=== PATIENT | male | born 1950 | race Caucasian/White ===

== ENCOUNTER 2020-11-22 13:31 | Outpatient (CLI) | payer OTHER, MEDICARE, SELFPAY ==
--- NOTE | 2020-11-22 16:30 | ONC CON_ITS ---
Dr. Agustin New Patient Note Patient: Casper Vogt Unit #: [id number]: 1950 Dicatated By: Zurdo Agustin M.D.Date of Visit: Nov 22, 2020 Onc MED New Patient/Consult Referring Physician: Evelyn Kennedy History of Present Illness: Mr. Casper Vogt, is a 70-year-old gentleman with a history of hepatocellular carcinoma diagnosed in October 2017, as per patient at that time he underwent MRI scan of his lower extremities and pelvis for peripheral vascular disease involving lower extremities and there was incidental finding showing a liver mass size about 6.8 x 5.8 cm in segment 6/7 of the liver which was biopsied and confirmed hepatocellular carcinoma subsequently patient underwent Therasphere on April 08, 2018, a new 4.2 cm lesion was seen in segment 7 of the liver on MRI scan done in June 2018 at that time he underwent traditional TACE on June 30, 2018 and then again follow-up scan shows recurrence underwent ablative therapy on November 27, 2018 then again follow-up scan shows recurrence of disease patient underwent therasphere on January 11, 2020 and follow-up scan done in March 2020 showed recurrence of disease for which he underwent CYNDY, and follow-up scan in April showed new enhancing lesions for which he underwent therashere on May 01, 2020 and follow-up MRI scan of abdomen done in July 2020 showed multiple lesions showed arterially enhancing lesion in segment 8 and also a new lesion in segment 2, there is also heterogeneous enhancement in the bilateral lower rib concern for bone spread,, CT scan of chest done did not show any evidence of mets but his bone scan was pending patient was recommended Avastin/Tecentriq based systemic therapy every 3 weeks which he started on October 10, 2020 and received second dose on October 31, 2020, tolerated well but because of transportation was a issue from his home in [place] to [place] so patient decided to switch his care to [place] as he had some reservation with local oncologist in [place] As his oncologist was holding off treatment for recurrence of disease while waiting for AFP, physician in [place] wanted to start his treatment as soon as possible and informed patient that some patient with hepatocellular carcinoma secrete AFP Not everyone Patient has history of diabetes, hypertension, history of glaucoma involving left eye, COPD, still smoke about pack a day Patient denies any abdominal pain, denies any jaundice, denies any skin rash but dry skin, denies any shortness of breath or wheezing, denies any diarrhea or mucus in the stool, denies any abdominal fullness, denies any jaundice. Tolerating 3 weekly Avastin/Tecentriq well and now due for next cycle and patient wants to resume treatment here in [place] instead of going to [place]. Past Medical History: Mr. Vogt's medical history consists of depression, glaucoma, history of Melanoma, hypercholesterolemia, hyperlipidemia, hypertension, osteoarthritis, peripheral vascular disease, and type II diabetes. Past Surgical History: There is no documented surgical history. Medications: Albuterol Sulfate 2 Puff(s) (of 108 (90 base) mcg/act) Aerosol Powder, Breath Activated Inhalation ac (tid) & at bedtime, Antacid Calcium 1 Each (of 500 mg) Tablet, chewable Oral PRN, Brimonidine-Dorzolamide Solution Ophthalmic, Cilostazol 1 Tablet (of 100 mg) Oral b.i.d., clonazePAM 1 Tablet (of 1 mg) Oral at bedtime, Cozaar 1 Each (of 50 mg) Tablet Oral daily, Gabapentin 1 Capsule (of 300 mg) Oral at bedtime, Glucophage 1 Tablet (of 1000 mg) Oral b.i.d., Latanoprost Emulsion Ophthalmic, Levemir FlexTouch (100 Units/mL) Subcutaneous Take as Directed, PreserVision AREDS 1 Each Capsule Oral daily, Terazosin HCl 1 Capsule (of 5 mg) Oral at bedtime, Timolol Maleate 1 Each (of 0.5 ) Solution Ophthalmic daily, Urea 10 Hydrating 1 Each Cream Topical PRN Allergies: No Known Allergies. Social History: Mr. Vogt is . He is a daily smoker who has smoked 1.0 pack/day for 50 years. He has no history of drinking. 3/4 TO 1 PPD SMOKER. Family History: There is no documented family history. Review Of Symptoms: Review of Systems is not available for this patient. Vital Signs: Performed on Nov 22, 2020 15:23: 0, 18.83, 1.63 sq.m, 67 in, 96 %, 103 /min (HIGH), 16 /min, 167/79 mm(hg) (HIGH), 98.4 F, and 120.2 lbs (HIGH). Performance Status: 1 - No physically strenuous activity, but ambulatory and able to carry out light or sedentary work (e.g. office work, light house work). (ECOG) Physical Examination: ENMT - No visible edema no rash no thrush no jaundice, Respiratory - Poor air entry, mild wheezing, Cardiovascular - Regular rate and rhythm of heart, Abdomen - Soft, bowel sounds present well-healed right upper quadrant surgical scar, Extremities - No visible edema. Lab/Imaging: Most recent lab results are not available for this patient. Impression: Recurrent hepatocellular carcinoma, diagnosed in October 2017 status post therasphere on April 08, 2018, status post traditional TACE on June 30, 2018 for recurrent disease, status post ablative therapy on November 27, 2018 for recurrence, status post thersphere on January 11, 2020, status post CYNDY in March 2020, status post therasphere on May 01, 2020, follow-up MRI scan of the liver done in July 2020 showed multiple lesions which showed arterially enhancing lesion in segment 8 and also new lesion in segment 2 and heterogeneous enhancement in bilateral lower ribs, concerning for bone mets, CT scan of chest was done which showed no evidence of metastatic disease but his bone scan was pending. Patient was started on Tecentriq/Avastin every 3 weeks on October 10, 2020 and patient received second dose on October 31, 2020, tolerated well and then switched his care to [place] from [place] Hypertension Diabetes, on insulin Glaucoma involving left eye with 50% vision History of peripheral vascular disease involving lower extremities Chronic smoking still active Plan: Discussed with patient regarding his disease status and treatment options, patient was getting all his treatment for hepatocellular carcinoma in [place] and recently because of recurrence of disease seen on repeat MRI scan of the liver done in July 2020, patient was recommended Tecentriq/Avastin, which he started on October 10, 2020 in [place] and then received second dose on October 31, 2020, and tolerated well now because of transportation issue from his home in [place] to [place], patient has decided to transfer his care to local, but he had some issues with local oncologist so decided to come to [place]. Patient is due for his next 3 weekly dose of Avastin and Tecentriq now, will obtain approval from his insurance and hopefully he will resume his treatment with Tecentriq/Avastin next week and then will continue every 3 weeks thereafter, as per medical record patient is scheduled for follow-up MRI scan of liver in January 2021 to assess disease response to the treatment., Patient will continue with his follow-up in [place] while getting treatment here. As far as generalized weakness fatigue is concerned or weight loss is concerned probably due to uncontrolled diabetes, will consider sliding scale for better glucose control. Patient was also advised to monitor his diet and follow diabetic diet. We will call him once we have approval from his insurance to resume his Avastin/Tecentriq therapy Signed By: Zurdo Agustin M.D. <<Signature on File>>
== END 2020-11-22 13:32 | disposition home or self-care (01) ==
PROVIDERS: PCP Nurse Practitioner Family; Visit Provider Internal Medicine Hematology & Oncology
DX: C22.1 Intrahepatic bile duct carcinoma (principal); C79.51 Secondary malignant neoplasm of bone; I10 Essential (primary) hypertension; E11.9 Type 2 diabetes mellitus without complications; I73.9 Peripheral vascular disease, unspecified; H40.9 Unspecified glaucoma; F17.210 Nicotine dependence, cigarettes, uncomplicated; Z79.899 Other long term (current) drug therapy
CPT/HCPCS: 99204

== ENCOUNTER 2020-12-19 12:54 | Outpatient (CLI) | payer OTHER, MEDICARE, SELFPAY ==
[2020-12-19 13:42] LABS: Basophils % 0.4 %; Eosinophils # 0.2 10^3/uL (0.0-0.8); Hematocrit 40.9 % (42.0-52.0); Hemoglobin 13.1 g/dL (11.7-16.6); Lymphocytes # 0.6 10^3/uL (0.8-4.8); Lymphocytes % 11.9 %; Mean Corpuscular Hemoglobin 30.3 pg (28.0-34.0); Mean Corpuscular Volume 94.5 fl (80-94); Mean Platelet Volume 10.8 fL (7.4-10.4); Monocytes # 0.5 10^3/uL (0.2-0.9); Monocytes % 11.7 %; Neutrophils # 3.27 10^3/uL (1.8-7.7); Neutrophils % 70.8 %; Nucleated Red Blood Cells % 0 %; Platelet Count 135 10^3/cmm (130-400); Red Blood Count 4.33 10^6/uL (4.1-5.3); Red Cell Distribution Width 13.3 % (12.1-15.1); White Blood Count 4.6 10^3/uL (4.0-10.0)
[2020-12-19 14:02] LABS: Alanine Aminotransferase 84 U/L (0-41); Albumin Level 3.3 g/dL (3.5-5.2); Alkaline Phosphatase 487 IU/L (40-130); Anion Gap 14.4 (5-19); Aspartate Amino Transferase 75 U/L (0-40); Blood Urea Nitrogen 12 mg/dL (8-23); Calcium 8.8 mg/dL (8.5-10.5); Carbon Dioxide 24 mmol/L (22-29); Chloride 104 mmol/L (98-107); Globulin 2.9 g/dL (1.3-4.6); Glucose 320 mg/dL (65-115); Osmolality Calculated 298 mOsm/kg (285-295); Potassium 4.4 mmol/L (3.5-5.1); Sodium 138 mmol/L (136-145); Total Bilirubin 1.7 mg/dL (0.15-1.2); Total Protein 6.2 g/dL (6.6-8.7)
[2020-12-19] MEDS: sodium chloride 0.9% 250 ML 75 ML IV (15:10)
== END 2020-12-19 12:55 | disposition home or self-care (01) ==
LOC: ONCMED 12:58
PROVIDERS: PCP Nurse Practitioner Family; Visit Provider Internal Medicine Hematology & Oncology
DX: Z51.12 Encounter for antineoplastic immunotherapy (principal); Z51.11 Encounter for antineoplastic chemotherapy; C22.1 Intrahepatic bile duct carcinoma; C79.51 Secondary malignant neoplasm of bone; Z79.899 Other long term (current) drug therapy
CPT/HCPCS: 80053; 85025; 96413; 96417; J7050; J9022; J9035

== ENCOUNTER 2021-01-09 07:58 | Outpatient (CLI) | payer OTHER, MEDICARE, SELFPAY ==
[2021-01-09 09:24] LABS: Basophils % 0.4 %; Eosinophils # 0.2 10^3/uL (0.0-0.8); Eosinophils % 3.4 %; Hematocrit 42.2 % (42.0-52.0); Hemoglobin 13.2 g/dL (11.7-16.6); Lymphocytes # 0.6 10^3/uL (0.8-4.8); Lymphocytes % 10.4 %; Mean Corpuscular HGB Conc 31.3 g/dL (30.0-36.0); Mean Corpuscular Hemoglobin 30.4 pg (28.0-34.0); Mean Corpuscular Volume 97.2 fl (80-94); Mean Platelet Volume 11.4 fL (7.4-10.4); Monocytes # 0.4 10^3/uL (0.2-0.9); Monocytes % 7.7 %; Neutrophils # 4.13 10^3/uL (1.8-7.7); Neutrophils % 77.7 %; Nucleated Red Blood Cells % 0 %; Platelet Count 135 10^3/cmm (130-400); Red Blood Count 4.34 10^6/uL (4.1-5.3); Red Cell Distribution Width 13.5 % (12.1-15.1); White Blood Count 5.3 10^3/uL (4.0-10.0)
[2021-01-09 10:27] LABS: Alanine Aminotransferase 61 U/L (0-41); Albumin Level 3.1 g/dL (3.5-5.2); Alkaline Phosphatase 410 IU/L (40-130); Aspartate Amino Transferase 73 U/L (0-40); Blood Urea Nitrogen 13 mg/dL (8-23); Calcium 8.7 mg/dL (8.5-10.5); Carbon Dioxide 26 mmol/L (22-29); Chloride 103 mmol/L (98-107); Globulin 3.2 g/dL (1.3-4.6); Glucose 153 mg/dL (65-115); Osmolality Calculated 293 mOsm/kg (285-295); Sodium 140 mmol/L (136-145); Total Bilirubin 1.1 mg/dL (0.15-1.2); Total Protein 6.3 g/dL (6.6-8.7)
[2021-01-09 10:32] LABS: Anion Gap 14.6 (5-19); Potassium 3.6 mmol/L (3.5-5.1)
[2021-01-09] MEDS: sodium chloride 0.9% 250 ML 75 ML IV (11:10)
--- NOTE | 2021-01-09 17:24 | ONC FU_ITS ---
Dr. Agustin follow up note Patient: Casper Vogt Unit #: [id number]: 1950 Dicatated By: Zurdo Agustin M.D.Date of Visit:Jan 09, 2021 Onc Med Follow-up/Prog Note History of Present Illness: Mr. Casper Vogt, is a 70-year-old gentleman with a history of hepatocellular carcinoma diagnosed in October 2017, as per patient at that time he underwent MRI scan of his lower extremities and pelvis for peripheral vascular disease involving lower extremities and there was incidental finding showing a liver mass size about 6.8 x 5.8 cm in segment 6/7 of the liver which was biopsied and confirmed hepatocellular carcinoma subsequently patient underwent Therasphere on April 08, 2018, a new 4.2 cm lesion was seen in segment 7 of the liver on MRI scan done in June 2018 at that time he underwent traditional TACE on June 30, 2018 and then again follow-up scan shows recurrence underwent ablative therapy on November 27, 2018 then again follow-up scan shows recurrence of disease patient underwent therasphere on January 11, 2020 and follow-up scan done in March 2020 showed recurrence of disease for which he underwent CYNDY, and follow-up scan in April showed new enhancing lesions for which he underwent therashere on May 01, 2020 and follow-up MRI scan of abdomen done in July 2020 showed multiple lesions showed arterially enhancing lesion in segment 8 and also a new lesion in segment 2, there is also heterogeneous enhancement in the bilateral lower rib concern for bone spread,, CT scan of chest done did not show any evidence of mets but his bone scan was pending patient was recommended Avastin/Tecentriq based systemic therapy every 3 weeks which he started on October 10, 2020 and received second dose on October 31, 2020, tolerated well but because of transportation was a issue from his home in [place] to [place] so patient decided to switch his care to [place] as he had some reservation with local oncologist in [place] As his oncologist was holding off treatment for recurrence of disease while waiting for AFP, physician in [place] wanted to start his treatment as soon as possible and informed patient that some patient with hepatocellular carcinoma secrete AFP Not everyone Patient has history of diabetes, hypertension, history of glaucoma involving left eye, COPD, still smoke about pack a day Came for follow-up, denies any specific complaint except generalized weakness and fatigue otherwise no nausea or vomiting, no diarrhea constipation, no melena hematochezia, no jaundice, no abdominal pain, no headaches, no skin rash, no mucus in stool. Tolerating 3 weekly Tecentriq/Avastin well. Medications: Albuterol Sulfate 2 Puff(s) (of 108 (90 base) mcg/act) Aerosol Powder, Breath Activated Inhalation ac (tid) & at bedtime, Antacid Calcium 1 Each (of 500 mg) Tablet, chewable Oral PRN, Brimonidine-Dorzolamide Solution Ophthalmic, Cilostazol 1 Tablet (of 100 mg) Oral b.i.d., clonazePAM 1 Tablet (of 1 mg) Oral at bedtime, Cozaar 1 Each (of 50 mg) Tablet Oral daily, Gabapentin 1 Capsule (of 300 mg) Oral at bedtime, Glucophage 1 Tablet (of 1000 mg) Oral b.i.d., Latanoprost Emulsion Ophthalmic, Levemir FlexTouch (100 Units/mL) Subcutaneous Take as Directed, PreserVision AREDS 1 Each Capsule Oral daily, Terazosin HCl 1 Capsule (of 5 mg) Oral at bedtime, Timolol Maleate 1 Each (of 0.5 ) Solution Ophthalmic daily, Urea 10 Hydrating 1 Each Cream Topical PRN Allergies: No Known Allergies. Review of Systems: Review of Systems is not available for this patient. Vital Signs: Performed on Jan 09, 2021 11:41 Height - 67.00 in Weight - 117.6 lbs (LOW) BSA - 1.61 sq.m BMI - 18.42 Temperature - 98.6 F Pulse - 120 /min (HIGH) Respiration - 18 /min BP - 187/83 mm(hg) (HIGH) O2 Sat - 96 % Pain - 7 Fatigue - 8 Performance Status: 1 - No physically strenuous activity, but ambulatory and able to carry out light or sedentary work (e.g. office work, light house work). (ECOG) Physical Examination: ENMT - No mouth sores, no thrush, no jaundice, Respiratory - Lungs are clear to auscultation, Cardiovascular - Regular rate and rhythm of heart, Abdomen - Soft, bowel sounds present, Extremities - No visible edema. Lab/Imaging: Most recent lab results are not available for this patient. Impression: Recurrent hepatocellular carcinoma, diagnosed in October 2017 status post therasphere on April 08, 2018, status post traditional TACE on June 30, 2018 for recurrent disease, status post ablative therapy on November 27, 2018 for recurrence, status post thersphere on January 11, 2020, status post CYNDY in March 2020, status post therasphere on May 01, 2020, follow-up MRI scan of the liver done in July 2020 showed multiple lesions which showed arterially enhancing lesion in segment 8 and also new lesion in segment 2 and heterogeneous enhancement in bilateral lower ribs, concerning for bone mets, CT scan of chest was done which showed no evidence of metastatic disease but his bone scan was pending. Patient was started on Tecentriq/Avastin every 3 weeks on October 10, 2020 and patient received second dose on October 31, 2020, tolerated well and then switched his care to [place] from [place] Hypertension Diabetes, on insulin Glaucoma involving left eye with 50% vision History of peripheral vascular disease involving lower extremities Chronic smoking still active Plan: Discussed with patient regarding his labs white blood count 5.3 hemoglobin 13.2 hematocrit 42.2 platelets 135,000 CMP is pending Clinically, patient is doing well with no new signs symptoms history of disease progression, will proceed with next dose of Tecentriq/Avastin today and then return to clinic in 4 weeks instead of 3 weeks at patient request, patient prefer to get treatment every 4 weeks, with CBC CMP and alpha-fetoprotein. Signed By: Zurdo Agustin M.D. <<Signature on File>>
== END 2021-01-09 07:59 | disposition home or self-care (01) ==
LOC: ONCMED 08:02
PROVIDERS: PCP Nurse Practitioner Family; Visit Provider Internal Medicine Hematology & Oncology
DX: Z51.11 Encounter for antineoplastic chemotherapy (principal); C22.0 Liver cell carcinoma; I10 Essential (primary) hypertension; E11.9 Type 2 diabetes mellitus without complications; H40.9 Unspecified glaucoma; I73.9 Peripheral vascular disease, unspecified; F17.210 Nicotine dependence, cigarettes, uncomplicated; Z79.899 Other long term (current) drug therapy; Z79.4 Long term (current) use of insulin
CPT/HCPCS: 80053; 85025; 96413; 96417; 99215; J7050; J9022; J9035

== ENCOUNTER 2021-02-07 10:05 | Outpatient (CLI) | payer OTHER, SELFPAY ==
[2021-02-07 10:43] LABS: Basophils % 0.5 %; Eosinophils # 0.2 10^3/uL (0.0-0.8); Eosinophils % 4.8 %; Hematocrit 43.2 % (42.0-52.0); Hemoglobin 13.7 g/dL (11.7-16.6); Lymphocytes # 0.5 10^3/uL (0.8-4.8); Mean Corpuscular HGB Conc 31.7 g/dL (30.0-36.0); Mean Corpuscular Hemoglobin 30.7 pg (28.0-34.0); Mean Corpuscular Volume 96.9 fl (80-94); Mean Platelet Volume 10.1 fL (7.4-10.4); Monocytes # 0.5 10^3/uL (0.2-0.9); Monocytes % 11.7 %; Neutrophils # 2.73 10^3/uL (1.8-7.7); Neutrophils % 69.5 %; Nucleated Red Blood Cells % 0 %; Platelet Count 150 10^3/cmm (130-400); Red Blood Count 4.46 10^6/uL (4.1-5.3); Red Cell Distribution Width 14.6 % (12.1-15.1); White Blood Count 3.9 10^3/uL (4.0-10.0)
[2021-02-07 11:15] LABS: Alanine Aminotransferase 65 U/L (0-41); Albumin Level 3.3 g/dL (3.5-5.2); Alkaline Phosphatase 421 IU/L (40-130); Anion Gap 10.9 (5-19); Aspartate Amino Transferase 96 U/L (0-40); Blood Urea Nitrogen 10 mg/dL (8-23); Calcium 8.9 mg/dL (8.5-10.5); Carbon Dioxide 28 mmol/L (22-29); Chloride 105 mmol/L (98-107); Globulin 3.4 g/dL (1.3-4.6); Glucose 93 mg/dL (65-115); Osmolality Calculated 289 mOsm/kg (285-295); Potassium 3.9 mmol/L (3.5-5.1); Sodium 140 mmol/L (136-145); Total Bilirubin 1.1 mg/dL (0.15-1.2); Total Protein 6.7 g/dL (6.6-8.7)
[2021-02-07 13:20] LABS: Testosterone Total 224.7 ng/dL (193-740); Thyroid Stimulating Hormone 3.36 uIU/mL (0.27-4.20); Tumor Marker Alpha Fetoprotein 1.3 ng/mL (0-8.3)
--- NOTE | 2021-02-07 17:42 | ONC FU_ITS ---
Dr. Agustin follow up note Patient: Casper Vogt Unit #: [id number]: 1950 Dicatated By: Zurdo Agustin M.D.Date of Visit:Feb 07, 2021 Onc Med Follow-up/Prog Note History of Present Illness: Mr. Casper Vogt, is a 70-year-old gentleman with a history of hepatocellular carcinoma diagnosed in October 2017, as per patient at that time he underwent MRI scan of his lower extremities and pelvis for peripheral vascular disease involving lower extremities and there was incidental finding showing a liver mass size about 6.8 x 5.8 cm in segment 6/7 of the liver which was biopsied and confirmed hepatocellular carcinoma subsequently patient underwent Therasphere on April 08, 2018, a new 4.2 cm lesion was seen in segment 7 of the liver on MRI scan done in June 2018 at that time he underwent traditional TACE on June 30, 2018 and then again follow-up scan shows recurrence underwent ablative therapy on November 27, 2018 then again follow-up scan shows recurrence of disease patient underwent therasphere on January 11, 2020 and follow-up scan done in March 2020 showed recurrence of disease for which he underwent CYNDY, and follow-up scan in April showed new enhancing lesions for which he underwent therashere on May 01, 2020 and follow-up MRI scan of abdomen done in July 2020 showed multiple lesions showed arterially enhancing lesion in segment 8 and also a new lesion in segment 2, there is also heterogeneous enhancement in the bilateral lower rib concern for bone spread,, CT scan of chest done did not show any evidence of mets but his bone scan was pending patient was recommended Avastin/Tecentriq based systemic therapy every 3 weeks which he started on October 10, 2020 and received second dose on October 31, 2020, tolerated well but because of transportation was a issue from his home in [place] to [place] so patient decided to switch his care to [place] as he had some reservation with local oncologist in [place] As his oncologist was holding off treatment for recurrence of disease while waiting for AFP, physician in [place] wanted to start his treatment as soon as possible and informed patient that some patient with hepatocellular carcinoma secrete AFP Not everyone Patient has history of diabetes, hypertension, history of glaucoma involving left eye, COPD, still smoke about pack a day Came for follow-up, complaining of generalized weakness and fatigue, no nausea or vomiting, no diarrhea constipation, no melena or hematochezia, no hemoptysis or hematemesis, no skin rash, no wheezing, no jaundice, no shortness of breath or palpitation Medications: Albuterol Sulfate 2 Puff(s) (of 108 (90 base) mcg/act) Aerosol Powder, Breath Activated Inhalation ac (tid) & at bedtime, Antacid Calcium 1 Each (of 500 mg) Tablet, chewable Oral PRN, Brimonidine-Dorzolamide Solution Ophthalmic, Cilostazol 1 Tablet (of 100 mg) Oral b.i.d., clonazePAM 1 Tablet (of 1 mg) Oral at bedtime, Cozaar 1 Each (of 50 mg) Tablet Oral daily, Gabapentin 1 Capsule (of 300 mg) Oral at bedtime, Glucophage 1 Tablet (of 1000 mg) Oral b.i.d., Latanoprost Emulsion Ophthalmic, Levemir FlexTouch (100 Units/mL) Subcutaneous Take as Directed, PreserVision AREDS 1 Each Capsule Oral daily, Terazosin HCl 1 Capsule (of 5 mg) Oral at bedtime, Timolol Maleate 1 Each (of 0.5 ) Solution Ophthalmic daily, Urea 10 Hydrating 1 Each Cream Topical PRN Allergies: No Known Allergies. Review of Systems: Review of Systems is not available for this patient. Vital Signs: Performed on Feb 07, 2021 11:45 Height - 67.00 in Weight - 116.4 lbs (LOW) BSA - 1.61 sq.m BMI - 18.23 Temperature - 98.4 F Pulse - 111 /min (HIGH) Respiration - 18 /min BP - 145/85 mm(hg) (HIGH) O2 Sat - 99 % Pain - 0 Fatigue - 10 Performance Status: Perf. Status is not available for this patient. Physical Examination: ENMT - No mouth sores, no thrush, no jaundice, Respiratory - Lungs are clear to auscultation, Cardiovascular - Regular rate and rhythm of heart, Abdomen - Soft, bowel sounds present, Extremities - No visible edema. Lab/Imaging: Most recent lab results are not available for this patient. Impression: Recurrent hepatocellular carcinoma, diagnosed in October 2017 status post therasphere on April 08, 2018, status post traditional TACE on June 30, 2018 for recurrent disease, status post ablative therapy on November 27, 2018 for recurrence, status post thersphere on January 11, 2020, status post CYNDY in March 2020, status post therasphere on May 01, 2020, follow-up MRI scan of the liver done in July 2020 showed multiple lesions which showed arterially enhancing lesion in segment 8 and also new lesion in segment 2 and heterogeneous enhancement in bilateral lower ribs, concerning for bone mets, CT scan of chest was done which showed no evidence of metastatic disease but his bone scan was pending. Patient was started on Tecentriq/Avastin every 3 weeks on October 10, 2020 and patient received second dose on October 31, 2020, tolerated well and then switched his care to [place] from [place] Hypertension Diabetes, on insulin Glaucoma involving left eye with 50% vision History of peripheral vascular disease involving lower extremities Chronic smoking still active Plan: Discussed with patient regarding his labs white blood count 3.9 hemoglobin 13.7 hematocrit 43.2 platelets 150,000 ANC 2730 CMP within normal limits except ALT 65 compared to 84 on December 19, 2020 AST 96 compared to 55 previously alk phos 421 compared to 47 previously Clinically, patient doing reasonably well, with no new signs symptom except progressive weakness and fatigue etiology could be multifactorial including overall body deconditioning but other possibility could be endocrinopathy due to immunotherapy, we will check his TSH level, testosterone level and also start him on prednisone 5 mg p.o. daily, will also check his alpha-fetoprotein and patient return to clinic in 1 month with CBC CMP and in the meantime, will proceed with his next scheduled dose of Tecentriq/Avastin Signed By: Zurdo Agustin M.D. <<Signature on File>>
== END 2021-02-07 10:06 | disposition home or self-care (01) ==
LOC: ONCMED 10:07
PROVIDERS: PCP Nurse Practitioner Family; Visit Provider Internal Medicine Hematology & Oncology
DX: Z51.12 Encounter for antineoplastic immunotherapy (principal); Z51.11 Encounter for antineoplastic chemotherapy; C22.0 Liver cell carcinoma; C79.51 Secondary malignant neoplasm of bone; I10 Essential (primary) hypertension; E11.9 Type 2 diabetes mellitus without complications; Z79.4 Long term (current) use of insulin; H40.52X0 Glaucoma secondary to other eye disorders, left eye, stage unspecified; I73.9 Peripheral vascular disease, unspecified; F17.210 Nicotine dependence, cigarettes, uncomplicated; Z79.899 Other long term (current) drug therapy
CPT/HCPCS: 80053; 82105; 84403; 84443; 85025; 96413; 96417; 99215; J7050; J9022; J9035

== ENCOUNTER 2021-02-28 11:12 | Outpatient (CLI) | payer OTHER, SELFPAY ==
[2021-02-28 11:58] LABS: Basophils % 0.5 %; Eosinophils # 0.2 10^3/uL (0.0-0.8); Eosinophils % 3.9 %; Hematocrit 44.5 % (42.0-52.0); Hemoglobin 13.6 g/dL (11.7-16.6); Lymphocytes # 0.7 10^3/uL (0.8-4.8); Lymphocytes % 14.9 %; Mean Corpuscular HGB Conc 30.6 g/dL (30.0-36.0); Mean Corpuscular Hemoglobin 31.2 pg (28.0-34.0); Mean Corpuscular Volume 102.1 fl (80-94); Mean Platelet Volume 9.8 fL (7.4-10.4); Monocytes # 0.4 10^3/uL (0.2-0.9); Monocytes % 9.7 %; Neutrophils # 3.08 10^3/uL (1.8-7.7); Neutrophils % 70.8 %; Nucleated Red Blood Cells % 0 %; Platelet Count 138 10^3/cmm (130-400); Red Blood Count 4.36 10^6/uL (4.1-5.3); Red Cell Distribution Width 14.3 % (12.1-15.1); White Blood Count 4.4 10^3/uL (4.0-10.0)
[2021-02-28 12:19] LABS: Alanine Aminotransferase 31 U/L (0-41); Albumin Level 2.8 g/dL (3.5-5.2); Aspartate Amino Transferase 43 U/L (0-40); Blood Urea Nitrogen 15 mg/dL (8-23); Calcium 8.5 mg/dL (8.5-10.5); Chloride 103 mmol/L (98-107); Globulin 3.3 g/dL (1.3-4.6); Glucose 87 mg/dL (65-115); Osmolality Calculated 292 mOsm/kg (285-295); Sodium 141 mmol/L (136-145); Total Bilirubin 0.9 mg/dL (0.15-1.2); Total Protein 6.1 g/dL (6.6-8.7)
[2021-02-28 12:47] LABS: Potassium 3.6 mmol/L (3.5-5.1)
[2021-02-28 12:52] LABS: Alkaline Phosphatase 326 IU/L (40-130)
[2021-02-28] MEDS: sodium chloride 0.9% 250 ML 75 ML IV (13:30)
[2021-02-28 21:04] LABS: Anion Gap 15.6 (5-19); Carbon Dioxide 26 mmol/L (22-29)
== END 2021-02-28 11:13 | disposition home or self-care (01) ==
LOC: ONCMED 11:13
PROVIDERS: PCP Nurse Practitioner Family; Visit Provider Internal Medicine Hematology & Oncology
DX: Z51.12 Encounter for antineoplastic immunotherapy (principal); Z51.11 Encounter for antineoplastic chemotherapy; C22.1 Intrahepatic bile duct carcinoma; C79.51 Secondary malignant neoplasm of bone; Z79.899 Other long term (current) drug therapy
CPT/HCPCS: 80053; 85025; 96413; 96417; J7050; J9022; J9035

== ENCOUNTER 2021-04-02 09:11 | Outpatient (CLI) | payer OTHER, SELFPAY ==
[2021-04-02 10:04] LABS: Basophils % 0.4 %; Eosinophils # 0.2 10^3/uL (0.0-0.8); Eosinophils % 2.6 %; Hematocrit 42.6 % (42.0-52.0); Hemoglobin 13.8 g/dL (11.7-16.6); Lymphocytes # 0.7 10^3/uL (0.8-4.8); Lymphocytes % 9.1 %; Mean Corpuscular HGB Conc 32.4 g/dL (30.0-36.0); Mean Corpuscular Hemoglobin 32.3 pg (28.0-34.0); Mean Corpuscular Volume 99.8 fl (80-94); Mean Platelet Volume 10.1 fL (7.4-10.4); Monocytes # 0.6 10^3/uL (0.2-0.9); Neutrophils # 6.41 10^3/uL (1.8-7.7); Neutrophils % 80.6 %; Nucleated Red Blood Cells % 0 %; Platelet Count 151 10^3/cmm (130-400); Red Blood Count 4.27 10^6/uL (4.1-5.3); Red Cell Distribution Width 15.1 % (12.1-15.1)
[2021-04-02 10:13] LABS: Alanine Aminotransferase 39 U/L (0-41); Alkaline Phosphatase 452 IU/L (40-130); Anion Gap 17.7 (5-19); Aspartate Amino Transferase 46 U/L (0-40); Blood Urea Nitrogen 16 mg/dL (8-23); Calcium 8.3 mg/dL (8.5-10.5); Carbon Dioxide 26 mmol/L (22-29); Chloride 99 mmol/L (98-107); Globulin 3.1 g/dL (1.3-4.6); Glucose 366 mg/dL (65-115); Osmolality Calculated 304 mOsm/kg (285-295); Potassium 3.7 mmol/L (3.5-5.1); Sodium 139 mmol/L (136-145); Total Bilirubin 1.2 mg/dL (0.15-1.2); Total Protein 6.1 g/dL (6.6-8.7)
--- NOTE | 2021-04-05 15:11 | ONC FU_ITS ---
Dr. Agustin follow up note Patient: Casper Vogt Unit #: [id number]: [id number] Dicatated By: Zurdo Agustin M.D.Date of Visit:Apr 02, 2021 Onc Med Follow-up/Prog Note History of Present Illness: Mr. Casper Vogt, is a 70-year-old gentleman with a history of hepatocellular carcinoma diagnosed in October 2017, as per patient at that time he underwent MRI scan of his lower extremities and pelvis for peripheral vascular disease involving lower extremities and there was incidental finding showing a liver mass size about 6.8 x 5.8 cm in segment 6/7 of the liver which was biopsied and confirmed hepatocellular carcinoma subsequently patient underwent Therasphere on April 08, 2018, a new 4.2 cm lesion was seen in segment 7 of the liver on MRI scan done in June 2018 at that time he underwent traditional TACE on June 30, 2018 and then again follow-up scan shows recurrence underwent ablative therapy on November 27, 2018 then again follow-up scan shows recurrence of disease patient underwent therasphere on January 11, 2020 and follow-up scan done in March 2020 showed recurrence of disease for which he underwent CYNDY, and follow-up scan in April showed new enhancing lesions for which he underwent therashere on May 01, 2020 and follow-up MRI scan of abdomen done in July 2020 showed multiple lesions showed arterially enhancing lesion in segment 8 and also a new lesion in segment 2, there is also heterogeneous enhancement in the bilateral lower rib concern for bone spread,, CT scan of chest done did not show any evidence of mets but his bone scan was pending patient was recommended Avastin/Tecentriq based systemic therapy every 3 weeks which he started on October 10, 2020 and received second dose on October 31, 2020, tolerated well but because of transportation was a issue from his home in [place] to [place] so patient decided to switch his care to [facility] as he had some reservation with local oncologist in [place] As his oncologist was holding off treatment for recurrence of disease while waiting for AFP, physician in [place] wanted to start his treatment as soon as possible and informed patient that some patient with hepatocellular carcinoma secrete AFP Not everyone Patient has history of diabetes, hypertension, history of glaucoma involving left eye, COPD, still smoke about pack a day Came for follow-up, complaining of generalized weakness and fatigue, now going for rehab for 2 weeks. As per patient he was having diarrhea but no blood or mucus in the stool, no abdominal pain, no being controlled with Imodium. Denies any fever chills denies any nausea or vomiting denies any abdominal pain, denies any shortness of breath or wheezing, denies any skin rash denies any jaundice tolerating Tecentriq/Avastin well otherwise Medications: Albuterol Sulfate 2 Puff(s) (of 108 (90 base) mcg/act) Aerosol Powder, Breath Activated Inhalation ac (tid) & at bedtime, Antacid Calcium 1 Each (of 500 mg) Tablet, chewable Oral PRN, Brimonidine-Dorzolamide Solution Ophthalmic, Cilostazol 1 Tablet (of 100 mg) Oral b.i.d., clonazePAM 1 Tablet (of 1 mg) Oral at bedtime, Cozaar 1 Each (of 50 mg) Tablet Oral daily, Gabapentin 1 Capsule (of 300 mg) Oral at bedtime, Glucophage 1 Tablet (of 1000 mg) Oral b.i.d., Latanoprost Emulsion Ophthalmic, Levemir FlexTouch (100 Units/mL) Subcutaneous Take as Directed, PreserVision AREDS 1 Each Capsule Oral daily, Terazosin HCl 1 Capsule (of 5 mg) Oral at bedtime, Timolol Maleate 1 Each (of 0.5 ) Solution Ophthalmic daily, Urea 10 Hydrating 1 Each Cream Topical PRN Allergies: No Known Allergies. Review of Systems: Review of Systems is not available for this patient. Vital Signs: Performed on Apr 02, 2021 11:49 Height - 67.00 in Temperature - 98.5 F Pulse - 76 /min Respiration - 18 /min BP - 178/78 mm(hg) (HIGH) O2 Sat - 90 % (LOW) Pain - 8 Fatigue - 0 Performance Status: 2 - Ambulatory/capable of all self-care, unable to perform any work activities. Up and about more than 50% of waking hours. (ECOG) Physical Examination: ENMT - No mouth sores, no thrush, no jaundice, Respiratory - Lungs are clear to auscultation, Cardiovascular - Regular rate and rhythm of heart, Abdomen - Soft, bowel sounds present, Extremities - No visible edema. Lab/Imaging: Most recent lab results are not available for this patient. Impression: Recurrent hepatocellular carcinoma, diagnosed in October 2017 status post therasphere on April 08, 2018, status post traditional TACE on June 30, 2018 for recurrent disease, status post ablative therapy on November 27, 2018 for recurrence, status post thersphere on January 11, 2020, status post CYNDY in March 2020, status post therasphere on May 01, 2020, follow-up MRI scan of the liver done in July 2020 showed multiple lesions which showed arterially enhancing lesion in segment 8 and also new lesion in segment 2 and heterogeneous enhancement in bilateral lower ribs, concerning for bone mets, CT scan of chest was done which showed no evidence of metastatic disease but his bone scan was pending. Patient was started on Tecentriq/Avastin every 3 weeks on October 10, 2020 and patient received second dose on October 31, 2020, tolerated well and then switched his care to [facility] from [place] Hypertension Diabetes, on insulin Glaucoma involving left eye with 50% vision History of peripheral vascular disease involving lower extremities Chronic smoking still active Plan: Discussed with patient regarding his labs white blood count 8 hemoglobin 13.8 hematocrit 42.6 platelets 151,000 CMP within normal limit except glucose 366 and albumin 3 compared to 2.8 previously alk phos 452 compared to 326 previously AST 46 Clinically, patient is doing reasonably well, now being admitted to rehab place for 2 weeks for generalized weakness and fatigue, as per patient he would like to hold his treatment for another 2 weeks as physically he is not feeling strong enough to go through treatment and then with rehab., We will hold his treatment for 2 weeks and then he will return to clinic in 2 weeks with CBC and CMP and he feels better will resume his immunotherapy with Tecentriq and Avastin. Signed By: Zurdo Agustin M.D. <<Signature on File>>
== END 2021-04-02 09:12 | disposition home or self-care (01) ==
LOC: ONCMED 09:13
PROVIDERS: PCP Nurse Practitioner Family; Visit Provider Internal Medicine Hematology & Oncology
DX: C22.1 Intrahepatic bile duct carcinoma (principal); I10 Essential (primary) hypertension; E11.9 Type 2 diabetes mellitus without complications; Z79.4 Long term (current) use of insulin; H40.5 Glaucoma secondary to other eye disorders; I73.9 Peripheral vascular disease, unspecified; F17.210 Nicotine dependence, cigarettes, uncomplicated; Z79.899 Other long term (current) drug therapy
CPT/HCPCS: 36415; 80053; 85025; 99214